=== PATIENT | female | born 1975 | race Native Hawaiian/Other Pacific Islander ===

== ENCOUNTER 2016-11-07 10:00 | Outpatient (CLI) | payer OTHER | END 2016-11-07 11:15 | disposition home or self-care (01) | LOC: MAMMO 10:00 | DX: Z12.31 Encounter for screening mammogram for malignant neoplasm of breast (principal) | CPT/HCPCS: G0202-TC ==

== ENCOUNTER 2020-09-13 11:07 | Outpatient (CLI) | payer OTHER | END 2020-09-13 19:38 | disposition home or self-care (01) | LOC: US 11:07 | PROVIDERS: ATTEND Registered Nurse | DX: R10.11 Right upper quadrant pain (principal) ==

== ENCOUNTER 2020-09-17 09:12 | Outpatient (CLI) | payer OTHER | END 2020-09-17 19:29 | disposition home or self-care (01) | LOC: NM 09:12 | PROVIDERS: ATTEND Nurse Practitioner | DX: R10.11 Right upper quadrant pain (principal) | CPT/HCPCS: A9537 ==

== ENCOUNTER 2021-03-16 09:51 | Emergency (ER) | payer OTHER ==
[~2021-03-16] VITALS: Ht 165.1 cm; Wt 64.4 kg
[2021-03-16 10:08] VITALS: TEMP 97.3
[2021-03-16 11:12] VITALS: BP 130/78
== END 2021-03-16 11:12 | disposition home or self-care (01) ==
LOC: ED 09:51
DX: M79.641 Pain in right hand (principal); M25.511 Pain in right shoulder; V59.59XA Passenger in pick-up truck or van injured in collision with other motor vehicles in traffic accident, initial encounter; Y92.410 Unspecified street and highway as the place of occurrence of the external cause
CPT/HCPCS: 96372; 99283; J1885